=== PATIENT | male | born 1995 | race Caucasian/White ===

== ENCOUNTER 2019-12-24 10:43 | Observation (INO) | payer OTHER ==
[~2019-12-24] VITALS: Ht 172.7 cm; Wt 105.6 kg
[2019-12-24] MEDS ORDERED: ALBU90OI INH (10:52)
[2019-12-24 11:15] LABS: BASOPHILS PERCENT AUTO 1 % (0-2); EOSINOPHILS ABSOLUTE AUTO 0.73 K/mm3 (0.00-0.68); EOSINOPHILS PERCENT AUTO 4 % (0-6); Hemoglobin 15.4 g/dL (13.5-17.5); IMMATURE GRAN ABSOLUTE AUTO 0.08 K/mm3 (0.00-0.10); IMMATURE GRAN PERCENT AUTO 0 % (0-1); LYMPHOCYTES PERCENT AUTO 15 % (21-46); MONOCYTES PERCENT AUTO 5 % (4-13); Mean Corpuscular HGB 25.5 pg (26.0-34.0); Mean Corpuscular HGB Conc 32.1 g/dL (31.5-36.5); Mean Corpuscular Volume 80 fL (80-100); Mean Platelet Volume 11.6 fL (9.1-12.4); NEUTROPHILS ABSOLUTE AUTO 13.92 K/mm3 (1.96-9.15); NEUTROPHILS PERCENT AUTO 75 % (41-73); Platelet Count 295 K/mm3 (150-400); RDW Coefficient Variation 12.5 % (11.7-14.2); RDW Standard Deviation 35.5 fL (35.1-46.3); Red Blood Cell Count 6.04 M/mm3 (4.30-5.90); White Blood Cell Count 18.63 K/mm3 (4.00-11.30)
[2019-12-24 11:36] LABS: Alanine Aminotransfer (ALT/SGP 53 U/L (12-78); Albumin/Globulin Ratio 1.2 (0.8-1.8); Alk Phos 68 U/L (50-136); Anion Gap 5 mmol/L (6-16); Aspartate Aminotrans (AST/SGOT 20 U/L (12-37); Bilirubin, Total 1.2 mg/dL (0.1-1.0); Blood Urea Nitrogen 20 mg/dL (8-24); Bun/Creatinine Ratio 19.4 (12.0-20.0); CO2, Blood 27 mmol/L (21-32); Calcium, Blood 8.8 mg/dL (8.5-10.1); Chloride, Blood 106 mmol/L (98-108); Creatinine, Blood 1.03 mg/dL (0.60-1.20); Globulin, Blood 3.2 g/dL (2.2-4.0); Glomerular Filtration Rate >60 (60-); Glucose, Blood 108 mg/dL (70-99); Sodium, Blood 138 mmol/L (136-145); Total Protein, Blood 7.2 g/dL (6.4-8.2)
[2019-12-24 12:59] LABS: Source, Urine Clean Catch
[2019-12-24 13:10] LABS: Bilirubin, Urine Neg (Neg); Blood, Urine Neg (Neg); Glucose Qualitative, Urine Neg (Neg); Ketones, Urine Neg (Neg); Leukocyte Esterase, Urine Neg (Neg); Nitrite, Urine Neg (Neg); Protein, Urine Neg (Neg); Urobilinogen, Urine NORM (Normal)
[2019-12-24 13:11] LABS: Appearance, Urine Clear (Clear); Color, Urine Yellow (P-Yellow)
--- NOTE | 2019-12-24 17:18 | NUR ---
OTHER STAFF HERE TO TAKE PT OUT OF ROOM FOR PROCEDURE. PT BEEN NPO.
--- NOTE | 2019-12-24 20:48 | NUR ---
PATIENT NOT AXO.ENCOURAGED SOME DEEP BREATH X3 WHEN AWAKE.OFFERED PM CARE ITEMS.
--- NOTE | 2019-12-24 21:05 | NUR ---
PT BACK TO RM 218 APPROX 194. PT HAS BEEN SOMEWHAT DROWSY BUT AWAKENS EASILY. WHEN AWAKE O2 SAT HAS BEEN IN MID-HIGH 90'S; WHILE ASLEEP IT DROPS TO LOW 90'S. 1.5L 02 NC PLACED; O2 SAT STABLE AT 94-96% WHILE ASLEEP. PAIN MANAGED WITH PO AND IV PAIN MED. PT RESTING QUIETLY AT THIS TIME. PARENTS PRESENT WITH PT UPON ARRIVAL TO ROOM; LEFT ABOUT 2100. PT TOLERATING JELLO AND CRACKERS W/O NAUSEA.
--- NOTE | 2019-12-25 04:31 | NUR ---
SHIFT SUMMARY PT RETURNED FROM SURGERY TO RM 218 AT BEGINNING OF SHIFT. PT WAS DROWSY AFTER HAVING PAIN MEDICATION, AND O2 SAT DROPPED TO LOW 90'S WHILE RESTING. 1.5L O2 NC PLACED FOR FIRST FEW HOURS OF SHIFT TO MAINTAIN O2 SAT. BY MIDNIGHT PT WOKE UP, AMBULATED TO BATHROOM WITH SBA AND VOIDED. PT HAS AMBULATED AND VOIDED SEVERAL TIMES SINCE MIDNIGHT. TOLERATING PO INTAKE. ON RA. PT HAS BEEN SLEEPING BUT AWAKENS EASILY. PAIN MANAGED WITH PO PAIN MED PER ORDERS.
[2019-12-25] MEDS ORDERED: ROXYBOND5 MG PO (12:38)
--- NOTE | 2019-12-25 12:56 | NUR ---
DISCHARGE; PT EATING AND DRINKING, VOIDING, PASSING GAS. PT PAIN TOLERABLE ON PO PAIN MEDICATION. PT REPORTS UNDERSTANDING OF DISCHARGE INSTRUCTIONS. PT FAMILY GIVING PT RIDE HOME. PT IV OUT WNL, NO OTHER IV'S IN PLACE. PT SENT WITH PAPERWORK, BELONGINGS. SCRIPT. PT UP IND WITH STEADY GAIT. PT REQ TO AMBULATE OUT OF HOSPITAL.
== END 2019-12-25 12:55 | disposition home or self-care (01) ==
LOC: ER 10:43 → SURS 10:45 → ER 14:43 → SURS 15:00
PROVIDERS: Emergency Medicine; ADMIT Surgery
PROC: 0DTJ4ZZ Resection of Appendix, Percutaneous Endoscopic Approach (ICD-10-PCS; principal; 2019-12-24 17:30)
DX: K35.30 Acute appendicitis with localized peritonitis, without perforation or gangrene (principal); J45.909 Unspecified asthma, uncomplicated; Z11.59 Encounter for screening for other viral diseases
CPT/HCPCS: 36415; 74177; 80053; 81003; 83690; 85025; 88304; 96365-59; 96366; 96375-59; 99285-25; G0378; J1100; J1170; J1885; J2250; J2405; J2543; J2704; J2710; J3010; J7030; J7120; Q9967; U0002